=== PATIENT | female | born 1945 | race Caucasian/White ===

== ENCOUNTER 2017-07-23 07:59 | Emergency (ER) | payer OTHER ==
[~2017-07-23] VITALS: Ht 144.8 cm; Wt 60.8 kg
[~2017-07-23 07:59] MED LIST: ALEN70TA1 PO; ATI.5 PO; CHOL20001 PO; IBUP-2213 PO; PANT40EC PO; PAX20 PO; SIMV20TA1 PO
[2017-07-23 08:00] VITALS: BP 140/80
--- NOTE | 2017-07-23 08:00 | NUR ---
Patient BIBA to bed 8 at this time.
--- NOTE | 2017-07-23 08:03 | NUR ---
PATIENT BIB EMS WITH C/O ABDOMINAL PAIN X 5 DAYS; DENIES N/V/D; HX; DM, GERD; RX; RANITIDINE 150MG BID, LORAZEPAM 0.5MG , DICYCLOMINE 20MG TID, PAOXETINE 20MG QD; SKIN IS PINK/WARM/DRY; AAOX4 WITH EVEN AND STEADY GAIT; LUNGS CLEAR BL; HR EVEN AND REGULAR; PT DENIES ANY FEVER, CP, SOB, OR COUGH AT THIS TIME; PATIENT STATES PAIN OF 8/10 AT THIS TIME; VSS; PATIENT POSITIONED FOR COMFORT; HOB ELEVATED; BEDRAILS UP X2; BED DOWN. ER MD MADE AWARE OF PT STATUS.
[2017-07-23] MEDS ORDERED: BEN10 PO (08:20)
[2017-07-23] MEDS ORDERED: RANI150T15 PO (08:20)
--- NOTE | 2017-07-23 08:25 | NUR ---
PT AMBULATES TO THE RESTROOM
--- NOTE | 2017-07-23 08:36 | NUR ---
PT TAKEN OFF THE UNIT VIA GURNEY BY [employer] FOR CT OF THE ABDOMEN
[2017-07-23 08:59] LABS: BASOPHILS # (AUTO) 0.1 K/uL (0.00-0.22); BASOPHILS % (AUTO) 1.4 % (0.0-2.0); EOSINOPHILS % (AUTO) 0.5 % (0.0-4.0); HEMATOCRIT 41.4 % (36-48); HEMOGLOBIN 13.8 g/dL (12.0-16.0); LYMPHOCYTES # (AUTO) 0.7 K/uL (2.5-16.5); LYMPHOCYTES % (AUTO) 13.6 % (20.5-51.1); MEAN CORPUSCULAR HEMOGLOBIN 30 pg (27-31); MEAN CORPUSCULAR HGB CONC 33 g/dL (33-37); MEAN CORPUSCULAR VOLUME 91 fL (80-94); MONOCYTES # (AUTO) 0.3 K/uL (0.8-1.0); MONOCYTES % (AUTO) 6.5 % (1.7-9.3); NEUTROPHILS # (AUTO) 4.1 K/uL (1.8-7.7); PLATELET COUNT (AUTO) 188 K/uL (140-450); RED BLOOD CELL COUNT(AUTO) 4.57 MIL/uL (4.20-5.40); RED CELL DISTRIBUTION WIDTH 13.7 % (11.6-13.7); WHITE BLOOD COUNT (AUTO) 5.2 K/uL (4.8-10.8)
[2017-07-23 09:08] LABS: CARBON DIOXIDE 26.7 mmol/L (21-32); CREATININE 0.8 mg/dL (0.6-1.3); POTASSIUM 3.7 mmol/L (3.5-5.1)
[2017-07-23 09:14] LABS: ALBUMIN 3.8 g/dL (3.4-5.0)
--- NOTE | 2017-07-23 09:32 | NUR ---
Patient discharged with v/s stable. Written and verbal after care instructions given and explained. Patient alert, oriented and verbalized understanding of instructions. Ambulatory with steady gait. All questions addressed prior to discharge. ID band removed. Patient advised to follow up with PMD. Rx of maalox, protonix given. Patient educated on indication of medication including possible reaction and side effects. Opportunity to ask questions provided and answered. Per yadi Barbosa to d/c without urine sample.
[2017-07-23 09:33] VITALS: BP 122/54
== END 2017-07-23 09:32 | disposition home or self-care (01) ==
LOC: MED 07:59
DX: K29.70 Gastritis, unspecified, without bleeding (principal); E11.9 Type 2 diabetes mellitus without complications; I10 Essential (primary) hypertension; Z79.899 Other long term (current) drug therapy
CPT/HCPCS: 80053; 82948; 83690; 85025; 99285

== ENCOUNTER 2017-08-10 08:58 | Emergency (ER) | payer OTHER ==
[~2017-08-10] VITALS: Ht 152.4 cm; Wt 61.7 kg
[~2017-08-10 08:58] MED LIST changes: -ALEN70TA1 PO; +BEN10 PO; -CHOL20001 PO; -IBUP-2213 PO; -PANT40EC PO; +RANI150T15 PO; -SIMV20TA1 PO
[2017-08-10 09:01] VITALS: BP 148/84
--- NOTE | 2017-08-10 09:04 | NUR ---
Patient ambulated to bed 3. RN evaluating patient at bedside.
--- NOTE | 2017-08-10 09:13 | NUR ---
Patient being evaluated by physician at bedside.
--- NOTE | 2017-08-10 09:13 | NUR ---
72/F BIB SON C/O EPIGASTRIC PAIN x 2 DAYS. PT STATES NAUSEA BUT DENIES VOMITING OR DIARRHEA. PAIN 10/10 SHARP NON-RADIATING. PT STATES SHE HAS HX OF GASTRITIS. DENIES INJURY OR TRAUMA. BREATHING EVEN AND UNLABORED. ERMD NOTIFIED OF PATIENT STATUS.
[2017-08-10] MEDS ORDERED: NACL 0.9% 1,000 ML IV ONE (09:25)
[2017-08-10] MEDS ORDERED: ONDANSETRON 4 MG/2 ML VIAL IVP ONE (09:25)
[2017-08-10] MEDS ORDERED: PAX20 PO (09:25)
[2017-08-10] MEDS ORDERED: FAMOTIDINE 20 MG/2 ML VIAL IVP ONE (09:25)
[2017-08-10] MEDS ORDERED: ONDA4TAB PO (09:26)
[2017-08-10] MEDS ORDERED: SIMV20TA1 PO (09:27)
[2017-08-10] MEDS ORDERED: ACET-8386 PO (09:27)
--- NOTE | 2017-08-10 09:48 | NUR ---
X-RAY AT BEDSIDE.
[2017-08-10 09:51] LABS: ANION GAP 17.5 (8-16); CARBON DIOXIDE 20.9 mmol/L (21-32); CREATININE 0.9 mg/dL (0.6-1.3); POTASSIUM 3.4 mmol/L (3.5-5.1)
[2017-08-10 09:55] LABS: BASOPHILS # (AUTO) 0.2 K/uL (0.00-0.22); BASOPHILS % (AUTO) 2.1 % (0.0-2.0); EOSINOPHILS # (AUTO) 0.1 K/uL (0-0.4); EOSINOPHILS % (AUTO) 0.8 % (0.0-4.0); HEMATOCRIT 43.1 % (36-48); HEMOGLOBIN 14.1 g/dL (12.0-16.0); LYMPHOCYTES # (AUTO) 1.3 K/uL (2.5-16.5); MEAN CORPUSCULAR HEMOGLOBIN 29 pg (27-31); MEAN CORPUSCULAR HGB CONC 33 g/dL (33-37); MEAN CORPUSCULAR VOLUME 90 fL (80-94); MONOCYTES # (AUTO) 0.4 K/uL (0.8-1.0); MONOCYTES % (AUTO) 5.3 % (1.7-9.3); NEUTROPHILS # (AUTO) 5.9 K/uL (1.8-7.7); NEUTROPHILS % (AUTO) 74.8 % (42.2-75.2); PLATELET COUNT (AUTO) 186 K/uL (140-450); RED BLOOD CELL COUNT(AUTO) 4.81 MIL/uL (4.20-5.40); RED CELL DISTRIBUTION WIDTH 13.6 % (11.6-13.7); WHITE BLOOD COUNT (AUTO) 7.9 K/uL (4.8-10.8)
[2017-08-10 10:11] LABS: APPEARANCE,URINE CLEAR (CLEAR); BILIRUBIN,URINE NEGATIVE (NEGATIVE); BLOOD, URINE NEGATIVE (NEGATIVE); COLOR,URINE YELLOW (YELLOW); LEUKOCYTE ESTERASE ,URINE NEGATIVE (NEGATIVE); NITRITE, URINE NEGATIVE (NEGATIVE); UGLUCOSE NEGATIVE (NEGATIVE)
--- NOTE | 2017-08-10 10:34 | NUR ---
PT RESTING; FAMILY AT BEDSIDE; VSS; PATIENT POSITIONED FOR COMFORT; HOB ELEVATED; BEDRAILS UP X2; BED DOWN. ER MD MADE AWARE OF PT STATUS.
[2017-08-10 11:39] VITALS: BP 132/84
--- NOTE | 2017-08-10 11:39 | NUR ---
Patient discharged with v/s stable. Written and verbal after care instructions given and explained. Patient alert, oriented and verbalized understanding of instructions. Ambulatory with steady gait. All questions addressed prior to discharge. ID band removed. Patient advised to follow up with PMD. Rx of ZOFRAN 4MG TABLET given. Patient educated on indication of medication including possible reaction and side effects. Opportunity to ask questions provided and answered.
== END 2017-08-10 11:39 | disposition home or self-care (01) ==
LOC: MED 08:58
DX: K29.60 Other gastritis without bleeding (principal); F41.9 Anxiety disorder, unspecified; E87.6 Hypokalemia; R03.0 Elevated blood-pressure reading, without diagnosis of hypertension; N20.0 Calculus of kidney; E11.9 Type 2 diabetes mellitus without complications; K21.9 Gastro-esophageal reflux disease without esophagitis; Z79.899 Other long term (current) drug therapy
CPT/HCPCS: 36415; 71010; 76705; 80053; 81003; 81025; 83690; 84484; 85025; 93005; 96361; 96374; 96375; 99285; J2405; J3490; J7030; Q0092

== ENCOUNTER 2019-01-19 01:57 | Emergency (ER) | payer OTHER ==
[~2019-01-19] VITALS: Ht 157.5 cm; Wt 59.9 kg
[~2019-01-19 01:57] MED LIST changes: +ACET-8386 PO; +ONDA4TAB PO; +RANI-745 PO; -RANI150T15 PO; +SIMV20TA1 PO
--- NOTE | 2019-01-19 01:58 | NUR ---
PT FROM [facility] TO BED #11
--- NOTE | 2019-01-19 02:00 | NUR ---
PT BIBA C/O SOB AND ANXIETY. PT STATES SHE WOKE UP IN THE MIDDLE OF SLEEPING FEELING SOB, DAUGHTER STATES PT HAS A HISTORY OF ANXIETY AND HER LAST ANXIETY ATTACK PT EXHIBITED THE SAME SYMPTOMS. --BREATHING EQUAL AND UNLABORED, LUNG SOUND CL BL. PT STATES 0/10 PAIN AT THIS TIME. PT ACTING APPROPRIATLY. CLEAR SPEECH. AAOX4. PT IN BED; BED IN LOWER LOCKED POSITION. ER MD AWARE OF PT STATUS. WILL CONTINUE TO MONITOR. PMH: ANXIETY
[2019-01-19 02:02] VITALS: BP 159/84
--- NOTE | 2019-01-19 02:05 | NUR ---
DR. GONZALEZ AT BEDSIDE FOR EVALUATION.
[2019-01-19] MEDS ORDERED: LORazepam 1 MG TAB PO ONE (02:15)
[2019-01-19] MEDS ORDERED: ALBU0.0912 IH (02:18)
[2019-01-19] MEDS ORDERED: PANT40EC PO (02:18)
[2019-01-19] MEDS ORDERED: DIPH25CA86 PO (02:18)
--- NOTE | 2019-01-19 02:55 | NUR ---
PT AMBULATED W/ STEADY GATE TO BR.
--- NOTE | 2019-01-19 03:04 | NUR ---
X-RAY AT BEDSIDE.
--- NOTE | 2019-01-19 04:15 | NUR ---
PT ALERT AND AWAKE TO VOICE, PT STATES NO PAIN AT THIS TIME. BREATHING EQUAL AND UNLABORED. COMFORT MEASURES PROVIDED.
--- NOTE | 2019-01-19 04:53 | NUR ---
Patient discharged with v/s stable. Patient states 0/10 pain, and states is feeling better and ready to go home, patient acting appropriatly. Written and verbal after care instructions given and explained. Patient verbalized understanding. Ambulatory with steady gait. All questions addressed prior to discharge. Advised to follow up with PMD.
[2019-01-19 05:12] VITALS: BP 153/73
== END 2019-01-19 04:53 | disposition home or self-care (01) ==
LOC: MED 01:57
DX: F41.9 Anxiety disorder, unspecified (principal); R05 Cough; E11.9 Type 2 diabetes mellitus without complications; K21.9 Gastro-esophageal reflux disease without esophagitis; Z79.899 Other long term (current) drug therapy
CPT/HCPCS: 71045; 93005; 99283; Q0092